=== PATIENT | female | born 1940 | race Caucasian/White ===

== ENCOUNTER 2021-07-27 17:37 | Emergency (ER) | payer BC, MEDICARE ==
[~2021-07-27] VITALS: Ht 167.6 cm; Wt 60.8 kg
--- NOTE | 2021-07-27 17:49 | NUR ---
TO ER BED 8, BIB [facility],FELT TAT SHE WAS HAVING SVT ON THE WAY HOME,TOOK HER FLECAINAMIDE, AAOX3, BREATHING EVEN AND NON LABORED, CONNECTED TO MONITOR, AWAITING MD BERNSTEIN
[2021-07-27] MEDS ORDERED: IV NS 0.9% 500 ML BAG IV ONE (18:00)
--- NOTE | 2021-07-27 18:00 | NUR ---
RECIEVED CALL FROM PT DAUGHTER GAVE PASTEURIZER NUMBER ANN [phone]
--- NOTE | 2021-07-27 18:19 | NUR ---
[employer] AT BEDSIDE
[2021-07-27 19:06] LABS: BASOPHILS % (AUTO) 0.9 % (0.0-2.0); HEMATOCRIT 38 % (33-45); HEMOGLOBIN 12.6 g/dL (11.5-14.8); LYMPHOCYTES % (AUTO) 25.2 % (20.0-44.0); MEAN CORPUSCULAR HGB CONC 33 g/dl (31.0-36.0); MEAN CORPUSCULAR VOLUME 93 fL (82-100); MONOCYTES % (AUTO) 7.6 % (2.0-12.0); NEUTROPHILS # (AUTO) 4.7 K/uL (1.8-8.9); NEUTROPHILS % (AUTO) 65.3 % (43.0-81.0); PLATELET COUNT (AUTO) 240 K/uL (150-450); RED BLOOD CELL COUNT(AUTO) 4.09 MIL/uL (4.0-5.2); WHITE BLOOD COUNT (AUTO) 7.2 K/uL (4.3-11.0)
[2021-07-27 19:07] LABS: BASOPHILS # (AUTO) 0.1 K/uL (0.0-0.2); LYMPHOCYTES # (AUTO) 1.8 K/uL (0.8-4.8); MONOCYTES # (AUTO) 0.5 K/uL (0.1-1.30)
--- NOTE | 2021-07-27 19:33 | NUR ---
rec'd report from regan Diaz for connie
--- NOTE | 2021-07-27 19:34 | NUR ---
f/u chemistry results. Per lab, running, will be done in about 15 min
[2021-07-27 19:56] LABS: CALCIUM, SERUM 8.4 mg/dL (8.5-10.1); CARBON DIOXIDE 27 mmol/L (21-32); CHLORIDE 105 mmol/L (98-107); CREATININE 0.8 mg/dL (0.6-1.3); GLUCOSE 95 mg/dL (74-106); POTASSIUM 3.9 mmol/L (3.5-5.1); SODIUM SERUM 140 mmol/L (136-145); UREA NITROGEN, BLOOD 10 mg/dL (7-18)
[2021-07-27 20:19] VITALS: BP 126/77
--- NOTE | 2021-07-27 20:19 | NUR ---
Patient discharged to home in stable condition. Written and verbal after care instructions given. Patient verbalizes understanding of instruction.
--- NOTE | 2021-07-27 20:21 | NUR ---
IV removed. Catheter intact and site benign. Pressure and 4x4 applied to site. No bleeding noted.
== END 2021-07-27 20:21 | disposition home or self-care (01) ==
LOC: ER 17:42
DX: I47.1 Supraventricular tachycardia (principal); I48.91 Unspecified atrial fibrillation; Z88.0 Allergy status to penicillin; Z88.2 Allergy status to sulfonamides
CPT/HCPCS: 36415; 71045-TC; 80048-TC; 84484-TC; 85025-TC